=== PATIENT | female | born 1935 | race Caucasian/White ===

== ENCOUNTER 2017-01-02 18:23 | Inpatient (IN) | payer OTHER, MEDICARE ==
[~2017-01-02] VITALS: Ht 149.9 cm; Wt 85.3 kg
[~2017-01-02 18:23] MED LIST: ALL220TA PO; AMLO5TAB22 PO; ASPI81TA82 PO; HYDR-2768 PO; LEVO.025 PO; MAGN30TA PO; METO100T PO; MULT-65 PO; PRED20 PO; RANI150 PO; TERA10CA3 PO; VITA100018 PO; ZOCO40TA PO
[2017-01-02 18:28] VITALS: BP 150/83; PULSE 60; RESP 15; TEMP 98.2; O2SAT 96
--- NOTE | 2017-01-02 18:30 | PD ---
HPI Chief Complaint: Injury Time Seen by Provider: 18:29 Travel History International Travel<30 days: No Contact w/Intl Traveler<30days: No Traveled to known affect area: No History of Present Illness HPI 81-year-old female came to the emergency room with history of a fall and landing on her elbow on the floor. She was unable to straighten her elbow. She was in pain and called 911. Patient was given IV morphine on route and a sling was applied. Currently she is comfortable in terms of pain she said. No history of head injury. Patient did not get dizzy or lightheaded prior to the fall. PFSH Past Medical History Narrative Medical List of her past medical, surgical, social and family history was reviewed from the nursing note. Arthritis: Yes High Cholesterol: Yes Cerebrovascular Accident: Yes (CVA 1985) Coronary Artery Disease: Yes Hypertension: Yes Thyroid Disease: Yes Menopausal: No Past Surgical History Appendectomy: Yes Section: Yes (X4) Eye Surgery: Yes (bilateral cataract removal) Gynecologic Surgery: Yes (complete oophrectomy) Hysterectomy: Yes Social History Alcohol Use: Yes (OCCAS) Tobacco Use: No Substance Use: No Allergies-Medications (Allergen,Severity, Reaction): Coded Allergies: Demerol (Verified Allergy, Severe, Edema, 11/30/13) Percodan (Verified Allergy, Severe, Anaphylaxis, 11/30/13) Ramipril (Verified Allergy, Severe, edema, 11/30/13) Comments List of her allergies reviewed from the nursing note. Reported Meds & Prescriptions Reported Meds & Active Scripts Active Reported Aspirin 81 Mg Chew 81 Mg CHEW HS Zocor (Simvastatin) 80 Mg Tab 80 Mg PO HS Amlodipine (Amlodipine Besylate) 5 Mg Tab 5 Mg PO DAILY Vitamin D3 (Cholecalciferol) 1,000 Unit Chew 1,000 Units CHEW DAILY Vitamin B Complex (B-Complex Vitamins) 1 Tab 1 Tab PO DAILY Zinc (Zinc Gluconate) 10 Mg Laya 1 Tab PO DAILY Calcium (Calcium Carbonate) 1,250 Mg Tab 1,250 Mg PO DAILY 1,250 mg calcium carbonate (500 mg elemental calcium) Magnesium 200 Mg Tab 200 Mg PO DAILY Metoprolol Tartrate 100 Mg Tab 100 Mg PO DAILY Vitamin E 100 Unit Cap 100 Units PO DAILY Vitamin C (Ascorbic Acid) 500 Mg Cap 500 Mg PO DAILY Hydrochlorothiazide 25 Mg Tab 25 Mg PO DAILY Multivitamin Women (Multiple Vitamins W/ Minerals) 1 Tab Tab 1 Tab PO DAILY Narrative Medication List of her home medications reviewed from the nursing note. Review of Systems Except as stated in HPI: all other systems reviewed are Neg Physical Exam Narrative GENERAL: Awake, alert, elderly, mild distress SKIN: Focused skin assessment warm/dry. HEAD: Atraumatic. Normocephalic. EYES: Pupils equal and round. No scleral icterus. No injection or drainage. ENT: No nasal bleeding or discharge. Mucous membranes pink and moist. NECK: Trachea midline. No JVD. CARDIOVASCULAR: Regular rate and rhythm. No murmur appreciated. RESPIRATORY: No accessory muscle use. Clear to auscultation. Breath sounds equal bilaterally. GASTROINTESTINAL: Abdomen soft, non-tender, nondistended. Hepatic and splenic margins not palpable. MUSCULOSKELETAL: Significant deformity on the left elbow. No clubbing. No cyanosis. No edema. Intact distal neurovascular NEUROLOGICAL: Awake and alert. No obvious cranial nerve deficits. Motor grossly within normal limits. Normal speech. PSYCHIATRIC: Appropriate mood and affect; insight and judgment normal. Data Data Last Documented VS Vital Signs Date Time Temp Pulse Resp B/P Pulse Ox O2 Delivery O2 Flow Rate FiO2 01/02/17 20:20 98 3.00 01/02/17 20:20 Nasal Cannula 01/02/17 19:45 52 18 165/67 01/02/17 18:28 98.2 Orders Elbow, Limited (Ap&Lat) (01/02/17 ) Propofol 200 Mg/20 Ml Inj (Diprivan 200 (01/02/17 19:15) Sodium Chlor 0.9% 1000 Ml Inj (Ns 1000 M (01/02/17 19:15) Oxygen Administration (01/02/17 19:15) Iv Access Insert/Monitor (01/02/17 19:15) Ecg Monitoring (01/02/17 19:15) Oximetry (01/02/17 19:15) Ice/Cold Pack (01/02/17 19:15) Splint Or Brace Apply/Monitor (01/02/17 19:15) Sling Cradle Arm (01/02/17 ) Splint Or Brace Apply/Monitor (01/02/17 20:07) Elbow, Limited (Ap&Lat) (01/02/17 20:16) Complete Blood Count With Diff (01/02/17 20:42) Basic Metabolic Panel (Bmp) (01/02/17 20:42) Elbow, One View (01/02/17 ) Admit Order (Ed Use Only) (01/02/17 21:44) Morphine Inj (Morphine Inj) (01/02/17 21:45) Ondansetron Inj (Zofran Inj) (01/02/17 21:45) Sling Cradle Arm (01/02/17 ) Fiberglass Splint Elbow Adult (01/02/17 ) Labs Laboratory Tests Test 01/02/17 21:20 White Blood Count 12.8 TH/MM3 Red Blood Count 3.91 MIL/MM3 Hemoglobin 11.9 GM/DL Hematocrit 34.0 % Mean Corpuscular Volume 86.8 FL Mean Corpuscular Hemoglobin 30.5 PG Mean Corpuscular Hemoglobin 35.1 % Concent Red Cell Distribution Width 13.7 % Platelet Count 252 TH/MM3 Mean Platelet Volume 9.9 FL Neutrophils (%) (Auto) 86.4 % Lymphocytes (%) (Auto) 8.2 % Monocytes (%) (Auto) 5.0 % Eosinophils (%) (Auto) 0.1 % Basophils (%) (Auto) 0.3 % Neutrophils # (Auto) 11.1 TH/MM3 Lymphocytes # (Auto) 1.1 TH/MM3 Monocytes # (Auto) 0.6 TH/MM3 Eosinophils # (Auto) 0.0 TH/MM3 Basophils # (Auto) 0.0 TH/MM3 CBC Comment DIFF FINAL Differential Comment Sodium Level 142 MEQ/L Potassium Level 3.4 MEQ/L Chloride Level 105 MEQ/L Carbon Dioxide Level 29.6 MEQ/L Anion Gap 7 MEQ/L Blood Urea Nitrogen 24 MG/DL Creatinine 0.92 MG/DL Estimat Glomerular Filtration 58 ML/MIN Rate Random Glucose 148 MG/DL Calcium Level 8.5 MG/DL [facility] Medical Decision Making Medical Screen Exam Complete: Yes Emergency Medical Condition: Yes Medical Record Reviewed: Yes Differential Diagnosis Elbow dislocation, elbow fracture Narrative Course 6:36 PM based on the clinical scenario it looks to be an elbow dislocation. I' ve ordered an x-ray. Awaiting for the x-ray to be done and resulted. 7 PM case was signed over to the oncoming ER physician. Procedures EKG Prior to Arrival: No Scripts Sennosides-Docusate Sodium (Olena-Colace)8.6-50 Mg Tab1 Tab PO BID PRN ( Constipation) #60 TAB Ref 0 Prov:Meghana Yarbrough MD 01/04/17 Hydrocodone-Acetaminophen ([place])7.5-325 mg Tab1 Tab PO Q4H PRN (PAIN) #40 TAB Ref 0 Prov:Fransisco Bridges MD 01/03/17 Matthieu Hernandez MD January 02, 2017 18:30
[2017-01-02] MEDS ORDERED: METO100T PO (18:40)
[2017-01-02] MEDS ORDERED: ZINC10LO4 PO (18:40)
[2017-01-02] MEDS ORDERED: CALC500T17 PO (18:40)
[2017-01-02] MEDS ORDERED: HYDR25TA5 PO (18:40)
[2017-01-02] MEDS ORDERED: ZOCO80TA PO (18:40)
[2017-01-02] MEDS ORDERED: ASPI81CH CHEW (18:40)
[2017-01-02] MEDS ORDERED: CHOL100025 CHEW (18:40)
[2017-01-02] MEDS ORDERED: VITATAB11 PO (18:40)
[2017-01-02] MEDS ORDERED: ASCO500C PO (18:40)
[2017-01-02] MEDS ORDERED: MAGN200T PO (18:40)
[2017-01-02] MEDS ORDERED: MULT-120 PO (18:40)
[2017-01-02] MEDS ORDERED: AMLO5TAB2 PO (18:40)
[2017-01-02] MEDS ORDERED: VITA100C2 PO (18:40)
[2017-01-02] MEDS ORDERED: HYTRIN PO (18:40)
[2017-01-02] MEDS ORDERED: SODIUM CHLOR 0.9% 1000 ML INJ 1,000 ML IV ONE (19:15)
[2017-01-02] MEDS ORDERED: PROPOFOL 200 MG/20 ML AMP IV ONE (19:15)
--- NOTE | 2017-01-02 19:19 | PD ---
Physical Exam Narrative General: The patient is a well-developed well-nourished female in no acute distress. Head and Neck exam: Head is normocephalic atraumatic. Eyes: pupils are equal round and reactive to light. Nose: Midline septum with pink mucous membranes Mouth: Dentition unremarkable. Moist mucus membranes. Posterior oropharynx is not erythematous. No tonsillar hypertrophy. Uvula midline. Airway patent. Neck: No palpable lymphadenopathy. No nuchal rigidity. No thyromegaly. Cardiovascular: Regular rate and rhythm without murmurs, gallops, or rubs. Lungs: Clear to auscultation bilaterally. No wheezes, rhonchi, or rales. Abdomen: Soft, without tenderness to palpation in all 4 quadrants of the abdomen. No guarding, rebound, or rigidity. Extremities: No clubbing, cyanosis, or edema, except an area of interest, the left elbow. The patient has swelling along the left elbow joint with decreased range of motion with attempted extension 2+ pulses in all 4 extremities. Back: No spinous process tenderness to palpation. No costovertebral angle tenderness to palpation. Neurologic Exam: Grossly nonfocal. Skin Exam: No rash noted. Intact skin that is warm and dry. Data Data Last Documented VS Vital Signs Date Time Temp Pulse Resp B/P Pulse Ox O2 Delivery O2 Flow Rate FiO2 01/02/17 20:20 98 3.00 01/02/17 20:20 Nasal Cannula 01/02/17 19:45 52 18 165/67 01/02/17 18:28 98.2 Orders Elbow, Limited (Ap&Lat) (01/02/17 ) Propofol 200 Mg/20 Ml Inj (Diprivan 200 (01/02/17 19:15) Sodium Chlor 0.9% 1000 Ml Inj (Ns 1000 M (01/02/17 19:15) Oxygen Administration (01/02/17 19:15) Iv Access Insert/Monitor (01/02/17 19:15) Ecg Monitoring (01/02/17 19:15) Oximetry (01/02/17 19:15) Ice/Cold Pack (01/02/17 19:15) Splint Or Brace Apply/Monitor (01/02/17 19:15) Sling Cradle Arm (01/02/17 ) Splint Or Brace Apply/Monitor (01/02/17 20:07) Elbow, Limited (Ap&Lat) (01/02/17 20:16) Complete Blood Count With Diff (01/02/17 20:42) Basic Metabolic Panel (Bmp) (01/02/17 20:42) Elbow, One View (01/02/17 ) Admit Order (Ed Use Only) (01/02/17 21:44) Morphine Inj (Morphine Inj) (01/02/17 21:45) Ondansetron Inj (Zofran Inj) (01/02/17 21:45) Sling Cradle Arm (01/02/17 ) Fiberglass Splint Elbow Adult (01/02/17 ) Labs Laboratory Tests Test 01/02/17 21:20 White Blood Count 12.8 TH/MM3 Red Blood Count 3.91 MIL/MM3 Hemoglobin 11.9 GM/DL Hematocrit 34.0 % Mean Corpuscular Volume 86.8 FL Mean Corpuscular Hemoglobin 30.5 PG Mean Corpuscular Hemoglobin 35.1 % Concent Red Cell Distribution Width 13.7 % Platelet Count 252 TH/MM3 Mean Platelet Volume 9.9 FL Neutrophils (%) (Auto) 86.4 % Lymphocytes (%) (Auto) 8.2 % Monocytes (%) (Auto) 5.0 % Eosinophils (%) (Auto) 0.1 % Basophils (%) (Auto) 0.3 % Neutrophils # (Auto) 11.1 TH/MM3 Lymphocytes # (Auto) 1.1 TH/MM3 Monocytes # (Auto) 0.6 TH/MM3 Eosinophils # (Auto) 0.0 TH/MM3 Basophils # (Auto) 0.0 TH/MM3 CBC Comment DIFF FINAL Differential Comment Sodium Level 142 MEQ/L Potassium Level 3.4 MEQ/L Chloride Level 105 MEQ/L Carbon Dioxide Level 29.6 MEQ/L Anion Gap 7 MEQ/L Blood Urea Nitrogen 24 MG/DL Creatinine 0.92 MG/DL Estimat Glomerular Filtration 58 ML/MIN Rate Random Glucose 148 MG/DL Calcium Level 8.5 MG/DL [facility] Medical Record Reviewed: Yes Supervised Visit with JESUS: No Interpretation(s) Last Impressions Elbow X-Ray 01/02/172015 Signed Impressions: Service Date/Time: Monday, January 02, 2017 20:23 - CONCLUSION: 1. Reduction of previous elbow dislocation. Mayur Fuentes MD Elbow X-Ray 01/02/17 0000 Signed Impressions: Service Date/Time: Monday, January 02, 2017 20:35 - CONCLUSION: 1. Reduction of previous dislocation. There is some residual widening of the joint with joint effusion. Mayur Fuentes MD Elbow X-Ray 01/02/17 0000 Signed Impressions: Service Date/Time: Monday, January 02, 2017 18:48 - CONCLUSION: 1. Dislocated left elbow. Mayur Fuentes MD Narrative Course During the course of the patients emergency department visit, the patients history, examination, and differential diagnosis were reviewed with the patient. The patient had IV access obtained and blood work sent for analysis. The patient's case was checked out to me by Dr. Hernandez. Please see her complete history and physical. The patient reportedly fell striking her elbow was unable to straighten it. The patient on x-ray was noted to have a posterior dislocation of the elbow. The patient will be consented for closed reduction of her elbow dislocation under procedural sedation. The patient was provided morphine for pain, Zofran for nausea. The patients laboratory studies were reviewed and remarkable for a white count of 12.8, hemoglobin 11.9, platelets 252 with 86.4 neutrophils, lymphocytes 8.2 , BMP is remarkable for potassium of 3.4, BUN 24, glucose 148. Radiology studies were reviewed and remarkable for a left elbow dislocation anteriorly and laterally. The patient was provided procedural sedation and her elbow was relocated, however it filled grossly unstable while holding it in place for splinting. There was some concern that it was still subluxed. She continued to have significant pain after relocation. A call was placed out to the orthopedic physician on-call, Dr. Campos who works in the same group as Dr. Lopez, the orthopedic physician that the patient has seen in the past. He recommended that the patient be admitted to the hospitalist service for pain control and Dr. Loepz would see the patient in the morning. Postreduction films of the patient's although according to the reading radiologist revealed relocation of the elbow, however some residual widening of the joint with joint effusion noted. Procedures Procedure Narrative After the risks and benefits were discussed the following procedure was performed: MODERATE SEDATION: The patient was placed on a clinical research monitor and pulse oximetry. An ambu bag and suction was immediately available at bedside. The patient was monitored by the nurse. Oxygen saturation , heart rate and blood pressure were monitored. Procedural sedation was acheived using propofol. The patient was observed until awake and alert. Procedural Sedation time in attendance was 30 minutes. Closed reduction left elbow anterior and lateral dislocation: The patient was sedated and 3 attempts were made at relocation of the anterior and lateral dislocation. The dislocation palpated to be back in place, however it was grossly unstable, easily moving in and out of place even after relocation. X- rays were done during the procedure which revealed that it was back in alignment and no longer laterally displaced, however the anterior dislocation was still slightly subluxed. Multiple attempts were made at correction of this back into position, however as the joint is grossly unstable this is the best alignment I could be obtained. The patient was splinted. A call was placed out to the orthopedic physician for further guidance Physician Communication Physician Communication The patient's case was discussed with Dr. Campos as mentioned above in the ED course. The patient's case is discussed with who did agree to admit the patient for further evaluation and treatment at this time. Diagnosis Primary Impression: Anterior dislocation of left elbow Qualified Code: S53.115A - Anterior dislocation of left elbow, initial encounter Admitting Information Admitting Physician Requests: Observation Anuradha Pepper MD January 02, 2017 19:19
[2017-01-02 19:45] VITALS: BP 165/67; PULSE 52; RESP 18; O2SAT 98
--- NOTE | 2017-01-02 19:57 | RADRPT ---
EXAM DATE/TIME: 01/02/2017 18:48 [facility] COMPARISON: No previous studies available for comparison. INDICATIONS : Left elbow pain, fell Dislocation MEDICAL HISTORY : None. SURGICAL HISTORY : None. ENCOUNTER: Initial ACUITY: 1 day PAIN SCORE: 10/10 LOCATION: Left Elbow FINDINGS: There is a complete dislocation at the left elbow involving both the radius and ulna. No definite fra cture on these limited views. CONCLUSION: 1. Dislocated left elbow. Mayur Fuentes MD on January 02, 2017 at 19:54 Board Certified Radiologist. This report was verified electronically.
[2017-01-02 20:20] VITALS: O2SAT 98
[2017-01-02 21:31] LABS: AUTOMATED NEUTROPHIL # 11.1 TH/MM3 (1.8-7.7); BASOPHIL % 0.3 % (0.0-2.0); EOSINOPHIL % 0.1 % (0.0-4.0); HEMO FLAGS DIFF FINAL; LYMPH % 8.2 % (9.0-44.0); LYMPHOCYTE # 1.1 TH/MM3 (1.0-4.8); MEAN CELL VOLUME 86.8 FL (80.0-100.0); MEAN CORPUSCULAR HEMOGLOBIN 30.5 PG (27.0-34.0); MEAN CORPUSCULAR HGB CONC 35.1 % (32.0-36.0); NEUT % 86.4 % (16.0-70.0); PLATELET COUNT 252 TH/MM3 (150-450); RED BLOOD COUNT 3.91 MIL/MM3 (4.00-5.30); RED CELL DISTRIBUTION WIDTH 13.7 % (11.6-17.2); WHITE BLOOD COUNT 12.8 TH/MM3 (4.0-11.0)
[2017-01-02] MEDS ORDERED: ONDANSETRON HCL 4 MG/2 ML VIAL IV PUSH ONE (21:45)
[2017-01-02] MEDS ORDERED: MORPHINE SULFATE 4 MG/ML INJ IV PUSH ONE (21:45)
[2017-01-02 21:52] LABS: BICARBONATE 29.6 MEQ/L (21.0-32.0); POTASSIUM 3.4 MEQ/L (3.5-5.1)
[2017-01-02] MEDS ORDERED: SODIUM CHLOR 0.9% 1000 ML INJ 1,000 ML IV SCH (22:01)
[2017-01-02] MEDS ORDERED: ACETAMINOPHEN 325 MG TAB PO PRN (22:15)
[2017-01-02] MEDS ORDERED: SODIUM CHLORIDE 0.9% FLUSH 10 ML FLUSH IV FLUSH PRN (22:15)
[2017-01-02] MEDS ORDERED: NALOXONE HCL 0.4 MG/ML AMP IV PRN (22:15)
--- NOTE | 2017-01-02 22:19 | RADRPT ---
EXAM DATE/TIME: 01/02/2017 20:23 [facility] COMPARISON: No previous studies available for comparison. INDICATIONS : Post reduction, left elbow. MEDICAL HISTORY : None. SURGICAL HISTORY : None. ENCOUNTER: Subsequent ACUITY: 1 day PAIN SCORE: 10/10 LOCATION: Left elbow FINDINGS: Previous elbow dislocation has been reduced. No fracture is identified. CONCLUSION: 1. Reduction of previous elbow dislocation. Mayur Fuentes MD on January 02, 2017 at 22:17 Board Certified Radiologist. This report was verified electronically.
--- NOTE | 2017-01-02 22:20 | RADRPT ---
EXAM DATE/TIME: 01/02/2017 20:35 [facility] COMPARISON: No previous studies available for comparison. INDICATIONS : Post reduction, left elbow. MEDICAL HISTORY : None. SURGICAL HISTORY : None. ENCOUNTER: Subsequent ACUITY: 1 day PAIN SCORE: 10/10 LOCATION: Left elbow FINDINGS: Previous dislocation is reduced. There is some widening of the elbow joint. Positive joint effusion. CONCLUSION: 1. Reduction of previous dislocation. There is some residual widening of the joint with joint effusio n. Mayur Fuentes MD on January 02, 2017 at 22:18 Board Certified Radiologist. This report was verified electronically.
--- NOTE | 2017-01-02 22:31 | HHI.HP ---
HPI Service [facility] Primary Care Physician Ray Bentley MD Admission Diagnosis Intractable pain related to left elbow dislocation from fall Diagnoses: Chief Complaint: Pain left arm after fall Travel History International Travel<30 Days: No Contact w/Intl Traveler <30 Da: No Traveled to Known Affected Are: No History of Present Illness This is an 81-year-old female patient with past medical history which includes arthritis, hyperlipidemia, CVA 1985 with no residual effects, CAD status post NH , hypertension, hypothyroidism and vaginal carcinoma treated with 5-FU 1995. Patient reports she was in her normal state of health got up out of her recliner this evening and was standing with her hand on the recliner then the recliner fell backwards and patient also fell landing on her left arm. Patient denies chest pain, shortness of breath, dizziness, syncope, loss of consciousness or head trauma. Patient does report severe pain left arm after the fall. Pain is better after morphine. Pain is worse with movement. Patient denies numbness tingling paresthesia of left upper extremity. Left upper extremity is currently in a sling. Patient offers no other complaints at this time. Review of Systems Except as stated in HPI: all other systems reviewed are Neg Past Family Social History Past Medical History arthritis, hyperlipidemia, CVA 1985 with no residual effects, CAD status post NH , hypertension, hypothyroidism, vaginal carcinoma treated with 5-FU in 1995 Past Surgical History Appendectomy, 4, bilateral cataract surgery, total hysterectomy with complete nephrectomy, tonsillectomy as a child Reported Medications Aspirin 81 Mg Chew 81 Mg CHEW HS Zocor (Simvastatin) 80 Mg Tab 80 Mg PO HS Amlodipine (Amlodipine Besylate) 5 Mg Tab 5 Mg PO DAILY Vitamin D3 (Cholecalciferol) 1,000 Unit Chew 1,000 Units CHEW DAILY Vitamin B Complex (B-Complex Vitamins) 1 Tab 1 Tab PO DAILY Zinc (Zinc Gluconate) 10 Mg Laya 1 Tab PO DAILY Calcium (Calcium Carbonate) 1,250 Mg Tab 1,250 Mg PO DAILY 1,250 mg calcium carbonate (500 mg elemental calcium) Magnesium 200 Mg Tab 200 Mg PO DAILY [Hytrin] 2 Mg PO DAILY Metoprolol Tartrate 100 Mg Tab 100 Mg PO DAILY Vitamin E 100 Unit Cap 100 Units PO DAILY Vitamin C (Ascorbic Acid) 500 Mg Cap 500 Mg PO DAILY Hydrochlorothiazide 25 Mg Tab 25 Mg PO DAILY Multivitamin Women (Multiple Vitamins W/ Minerals) 1 Tab Tab 1 Tab PO DAILY Allergies: Coded Allergies: Demerol (Verified Allergy, Severe, Edema, 11/30/13) Percodan (Verified Allergy, Severe, Anaphylaxis, 11/30/13) Ramipril (Verified Allergy, Severe, edema, 11/30/13) Active Ordered Medications Current Medications Medications (Trade) Dose Ordered Sig/Michael Route Start Time Stop Time Status Last Admin (NS 1000 ml Inj) 1,000 ml @ 75 mls/hr [id number] IV 01/02/17 22:01 01/03/17 11:20 (NS Flush) 2 ml UNSCH PRN IV FLUSH 01/02/17 22:15 (NS Flush) 2 ml BID IV FLUSH 01/03/17 09:00 (Tylenol) 650 mg Q4H PRN PO 01/02/17 22:15 (Zofran Inj) 4 mg Q6H PRN IVP 01/02/17 22:15 (Colace) 100 mg Q12H PO 01/03/17 09:00 (Narcan Inj) 0.4 mg UNSCH PRN IV 01/02/17 22:15 (Morphine Inj) 2 mg Q4HR PRN IV PUSH 01/02/17 22:15 (Norvasc) 5 mg DAILY PO 01/03/17 09:00 (Hydrodiuril) 25 mg DAILY PO 01/03/17 09:00 (Lopressor) 100 mg DAILY PO 01/03/17 09:00 (Pravachol) 80 mg HS PO 01/03/17 21:00 Family History Mother at77 of CHF Father at age 84 secondary to cancer Social History Patient lives at home alone and is independent with ADLs Reports EtOH use socially- not on a daily basis Quit tobacco use in 1985 Denies illicit drug use Physical Exam Vital Signs Vital Signs Date Time Temp Pulse Resp B/P Pulse Ox O2 Delivery O2 Flow Rate FiO2 01/02/17 20:20 98 3.00 01/02/17 20:20 98 01/02/17 20:20 98 Nasal Cannula 3.00 01/02/17 19:45 95 Nasal Cannula 01/02/17 19:45 98 Nasal Cannula 2 01/02/17 19:45 52 18 165/67 98 Nasal Cannula 2 01/02/17 18:32 56 17 01/02/17 18:28 98.2 60 15 150/83 96 Physical Exam GENERAL: This is a well-nourished, well-developed patient, in no apparent distress. Left upper extremity in sling SKIN: No rashes, ecchymoses or lesions. Cool and dry. HEAD: Atraumatic. Normocephalic. No temporal or scalp tenderness. EYES: Extraocular motions intact. No scleral icterus. No injection or drainage. CARDIOVASCULAR: Regular rate and rhythm without murmurs, gallops, or rubs. RESPIRATORY: Clear to auscultation. Breath sounds equal bilaterally. No wheezes , rales, or rhonchi. GASTROINTESTINAL: Abdomen soft, non-tender, nondistended. No hepato-splenomegaly , or palpable masses. No guarding. MUSCULOSKELETAL: Extremities without clubbing, cyanosis, or edema. No joint tenderness, effusion, or edema noted. No calf tenderness. Negative Homans sign bilaterally. NEUROLOGICAL: Awake and alert. No focal deficits appreciated. Motor and sensory grossly within normal limits. 4-5 out of 5 muscle strength in all muscle groups, with the exception of left upper extremity currently in a sling with limited range of motion. Normal speech. Laboratory Laboratory Tests Test 01/02/17 21:20 White Blood Count 12.8 Red Blood Count 3.91 Hemoglobin 11.9 Hematocrit 34.0 Mean Corpuscular Volume 86.8 Mean Corpuscular Hemoglobin 30.5 Mean Corpuscular Hemoglobin 35.1 Concent Red Cell Distribution Width 13.7 Platelet Count 252 Mean Platelet Volume 9.9 Neutrophils (%) (Auto) 86.4 Lymphocytes (%) (Auto) 8.2 Monocytes (%) (Auto) 5.0 Eosinophils (%) (Auto) 0.1 Basophils (%) (Auto) 0.3 Neutrophils # (Auto) 11.1 Lymphocytes # (Auto) 1.1 Monocytes # (Auto) 0.6 Eosinophils # (Auto) 0.0 Basophils # (Auto) 0.0 CBC Comment DIFF FINAL Differential Comment Sodium Level 142 Potassium Level 3.4 Chloride Level 105 Carbon Dioxide Level 29.6 Anion Gap 7 Blood Urea Nitrogen 24 Creatinine 0.92 Estimat Glomerular Filtration 58 Rate Random Glucose 148 Calcium Level 8.5 Result Diagram: 01/02/17211901/02/172119 Imaging Last Impressions Elbow X-Ray 01/02/172015 Signed Impressions: Service Date/Time: Monday, January 02, 2017 20:23 - CONCLUSION: 1. Reduction of previous elbow dislocation. Mayur Fuentes MD Last Impressions Elbow X-Ray 01/02/17 0000 Signed Impressions: Service Date/Time: Monday, January 02, 2017 18:48 - CONCLUSION: 1. Dislocated left elbow. Mayur Fuentes MD Assessment and Plan Problem List: (1) Anterior dislocation of left elbow ICD Code: S53.115A Status: Acute Assessment and Plan This is an 81-year-old female patient with past medical history which includes arthritis, hyperlipidemia, CVA 1985 with no residual effects, CAD status post NH , hypertension, hypothyroidism. Patient reports she was in her normal state of health got up out of her recliner this evening and was standing with her hand on the recliner then the recliner fell backwards and patient also fell landing on her left arm. Dislocation left elbow after a fall ER physician reduced left elbow in ER Repeat x-ray reveals reduced left elbow Left upper extremity currently in sling Consult to orthopedic surgery Morphine IV as needed for pain Nothing by mouth after midnight Other chronic stable medical conditions include hyperlipidemia, hypertension, CAD- continue home medications as indicated SCDs for DVT prophylaxis Discussed with here provider, nursing and patient Also discussed with Dr. Fleming Physician Certification 2 Midnight Certification Type: Admission for Inpatient Services Order for Inpatient Services The services are ordered in accordance with Medicare regulations or non- Medicare payer requirements, as applicable. In the case of services not specified as inpatient-only, they are appropriately provided as inpatient services in accordance with the 2-midnight benchmark. Estimated LOS (days): 2 days is the estimated time the patient will need to remain in the hospital, assuming treatment plan goals are met and no additional complications. Post-Hospital Plan: Home Problem Qualifiers (1) Anterior dislocation of left elbow: Qualified Code: S53.115A - Anterior dislocation of left elbow, initial encounter Ilda Ureña January 02, 2017 22:31
[2017-01-03] VITALS (9 sets, daily range): BP systolic 142–188; BP diastolic 55–84; PULSE 51–60; RESP 16–19; TEMP 96.1–98.1; O2SAT 93–98
[2017-01-03] MEDS: ONDANSETRON HCL 4 MG/2 ML VIAL IVP PRN (05:35)
--- NOTE | 2017-01-03 07:03 | PD.ORT.PN ---
Subjective Subjective Remarks s/p elbow dislocation attempted reduction in ER unsuccessful Objective Vitals Vital Signs Date Time Temp Pulse Resp B/P Pulse Ox O2 Delivery O2 Flow Rate FiO2 01/03/17 05:47 154/64 01/03/17 04:00 96.9 51 17 166/72 96 01/03/17 04:00 Room Air 01/03/17 00:03 96.1 55 16 175/71 95 01/03/17 00:03 Room Air 01/02/17 20:20 98 3.00 01/02/17 20:20 98 01/02/17 20:20 98 Nasal Cannula 3.00 01/02/17 19:45 95 Nasal Cannula 01/02/17 19:45 98 Nasal Cannula 2 01/02/17 19:45 52 18 165/67 98 Nasal Cannula 2 01/02/17 18:32 56 17 01/02/17 18:28 98.2 60 15 150/83 96 I/O 01/02/17 01/02/17 01/02/17 01/03/17 01/03/17 01/03/17 07:00 15:00 23:00 07:00 15:00 23:00 Intake Total 324 ml Balance 324 ml Intake Oral 0 ml IV Total 324 ml # Voids 1 Result Diagram: 01/02/17211901/02/172119 Imaging Last 24 hours Impressions Elbow X-Ray 01/02/172015 Signed Impressions: Service Date/Time: Monday, January 02, 2017 20:23 - CONCLUSION: 1. Reduction of previous elbow dislocation. Mayur Fuentes MD Objective Remarks LUE: +splint. NVI Assessment & Plan Assessment and Plan 1) Left elbow dislocation -clear liquids until 11AM. NPO after 11AM -sign consents -surgery today [place] Man January 03, 2017 07:03
[2017-01-03] MEDS: DOCUSATE SODIUM 100 MG CAP PO SCH ×2 (07:48→20:03)
[2017-01-03] MEDS: METOPROLOL TARTRATE 100 MG TAB PO SCH (07:48)
[2017-01-03 07:49] LABS: AUTOMATED NEUTROPHIL # 7.2 TH/MM3 (1.8-7.7); BASOPHIL # 0.1 TH/MM3 (0-0.2); BASOPHIL % 0.8 % (0.0-2.0); EOSINOPHIL # 0.1 TH/MM3 (0-0.4); EOSINOPHIL % 1.2 % (0.0-4.0); HEMO FLAGS DIFF FINAL; LYMPH % 16.8 % (9.0-44.0); LYMPHOCYTE # 1.7 TH/MM3 (1.0-4.8); MEAN CELL VOLUME 87.3 FL (80.0-100.0); MEAN CORPUSCULAR HEMOGLOBIN 30.1 PG (27.0-34.0); MEAN CORPUSCULAR HGB CONC 34.5 % (32.0-36.0); MONO % 8.5 % (0.0-8.0); NEUT % 72.7 % (16.0-70.0); PLATELET COUNT 249 TH/MM3 (150-450); RED BLOOD COUNT 4.24 MIL/MM3 (4.00-5.30); RED CELL DISTRIBUTION WIDTH 13.9 % (11.6-17.2); WHITE BLOOD COUNT 9.9 TH/MM3 (4.0-11.0)
[2017-01-03] MEDS: SODIUM CHLORIDE 0.9% FLUSH 10 ML FLUSH IV FLUSH SCH ×2 (07:49→20:03)
[2017-01-03] MEDS: HYDROCHLOROTHIAZIDE 25 MG TAB PO SCH (07:49)
[2017-01-03] MEDS: amLODIPine BESYLATE 5 MG TAB PO SCH (07:49)
[2017-01-03] MEDS: MORPHINE SULFATE 4 MG/ML INJ IV PUSH PRN (07:52)
--- NOTE | 2017-01-03 08:04 | MB ---
cc: LANEREINA DATE OF CONSULTATION: 01/03/2017 REASON FOR CONSULTATION Left elbow dislocation. HISTORY OF PRESENT ILLNESS Staci is an 81-year-old female who had a fall at home. She got out of a recliner when she fell. She landed on her left arm. She had immediate left elbow pain. She presented to the emergency room where x-rays revealed a left elbow dislocation. She underwent attempt at closed reduction. Post-reduction x-rays revealed improvement of the alignment, however, the elbow was not completely reduced. She is currently awake and alert in the orthopedic floor. Currently her only complaint is her left elbow. Pain is worse with movement and is improved with rest. She denies any dizziness, syncope or loss of consciousness. PAST MEDICAL HISTORY ILLNESSES 1. Arthritis. 2. High cholesterol. 3. History of CVA. 4. Coronary artery disease. 5. Hypertension. 6. Hypothyroidism. 7. Vaginal carcinoma. SURGERIES 1. Appendectomy. 2. . 3. Cataract surgery. 4. Total hysterectomy. 5. Nephrectomy. 6. Tonsillectomy. MEDICATIONS 1. Aspirin. 2. Zocor. 3. Amlodipine. 4. Vitamin-D. 5. Vitamin-B. 6. Zinc. 7. Calcium. 8. Magnesium. 9. Metoprolol. 10.Hydrochlorothiazide. ALLERGIES 1. DEMEROL. 2. PERCODAN. 3. RAMIPRIL. FAMILY HISTORY Positive for CHF in her mother and cancer in her father. SOCIAL HISTORY The patient lives at home alone. She denies tobacco or drug use. She drinks alcohol socially. REVIEW OF SYSTEMS The patient denies headache, visual changes, neck pain, chest pain, shortness of breath, abdominal pain, nausea, vomiting or recent weight loss. She complains of left elbow pain. PHYSICAL EXAMINATION GENERAL: The patient is a well-developed, well-nourished 81-year-old female who is awake and alert. She is alert and oriented x3. VITAL SIGNS: Temperature 96.9, pulse 51, respirations 17, blood pressure 166/72. O2 sat is 96% on 3 liters nasal cannula. HEAD: The patient is normocephalic. Pupils are equal. NECK: Soft, nontender. Trachea is midline. ABDOMEN: Soft, nontender, nondistended. EXTREMITIES: Examination of left arm reveals no tenderness around her shoulder, wrist or fingers. She has intact sensation in all fingers. She has good capillary refill in all fingers. She has pain with any shoulder motion. Radial pulse is palpable. Examination of right arm reveals no pain with shoulder, elbow or wrist motion. She has intact sensation in all fingers. She has good capillary refill in all fingers. Sensation is intact. Examination of bilateral lower extremities reveals no significant pain with hip, knee or ankle motion. Skin is intact in both feet. Dorsalis pedis pulses are palpable. X-RAYS X-rays of left elbow were reviewed. X-rays reveal initial complete elbow dislocation. Post-reduction x-rays reveal some mild subluxation of the elbow joint. IMPRESSION Left elbow dislocation. PLAN The treatment options were discussed with the patient. At this point I would recommend attempted closed reduction of the left elbow. If fracture is unstable the patient may need definitive ligamentous reconstruction or possible external fixation placement. Risks of surgery include bleeding, infection, injuries to arteries, nerves and blood vessels, need for further surgery, need for ligament reconstruction as well as medical complications associated with general anesthesia. All questions were answered. I will plan on surgery today. A mid-level provider in my office, nurse practitioner or PA, may see this patient on a follow-up basis and continue to implement the objective of this plan including: Starting or adjusting medications, injections of muscle, tendon, bursa or joints, cast application, orthotic or brace application, physical therapy, further radiographic studies including x-ray, MRI, CT, ultrasounds or bone scan, vascular studies, neurologic studies, or other specialist consultations, and proceeding with surgical management as appropriate. MD JODY Welsh/CAROL /7:26 AM /7:56 AM
[2017-01-03 08:17] LABS: BICARBONATE 28.9 MEQ/L (21.0-32.0); POTASSIUM 3.6 MEQ/L (3.5-5.1)
[2017-01-03] MEDS ORDERED: TERA2CAP3 PO (11:26)
--- NOTE | 2017-01-03 11:47 | HHI.PR ---
Subjective Remarks Patient seen for follow up anterior dislocation of right elbow. 01/03/17-patient seen this AM. No acute events overnight. SBP is up to the 180s this morning (now in the 160s). Other vitals WNL. No c/o CP, AGUILAR, or vision change at this time. Feels pain well controlled with morphine. Objective Vitals Vital Signs Date Time Temp Pulse Resp B/P Pulse Ox O2 Delivery O2 Flow Rate FiO2 01/03/17 08:00 97.3 60 19 186/84 94 01/03/17 05:47 154/64 01/03/17 04:00 96.9 51 17 166/72 96 01/03/17 04:00 Room Air 01/03/17 00:03 96.1 55 16 175/71 95 01/03/17 00:03 Room Air 01/02/17 20:20 98 3.00 01/02/17 20:20 98 01/02/17 20:20 98 Nasal Cannula 3.00 01/02/17 19:45 95 Nasal Cannula 01/02/17 19:45 98 Nasal Cannula 2 01/02/17 19:45 52 18 165/67 98 Nasal Cannula 2 01/02/17 18:32 56 17 01/02/17 18:28 98.2 60 15 150/83 96 I/O 01/02/17 01/02/17 01/02/17 01/03/17 01/03/17 01/03/17 07:00 15:00 23:00 07:00 15:00 23:00 Intake Total 324 ml Balance 324 ml Intake Oral 0 ml IV Total 324 ml # Voids 1 Result Diagram: 01/03/1728 01/03/17 0728 Objective Remarks GENERAL: This is a well-nourished, well-developed patient, in no apparent distress. SKIN: No rashes, ecchymoses or lesions. Cool and dry. CARDIOVASCULAR: Regular rate and rhythm without murmurs, gallops, or rubs. RESPIRATORY: Clear to auscultation. Breath sounds equal bilaterally. No wheezes , rales, or rhonchi. GASTROINTESTINAL: Abdomen soft, non-tender, nondistended. No hepato-splenomegaly , or palpable masses. No guarding. MUSCULOSKELETAL: Extremities without clubbing, cyanosis, or edema. No joint tenderness, effusion, or edema noted. No calf tenderness. Negative Homans sign bilaterally. Left upper extremity in sling. Moves fingers and sensation intact to touch in LUE. NEUROLOGICAL: Awake and alert. A/P Problem List: (1) Anterior dislocation of left elbow ICD Code: S53.115A Status: Acute Assessment and Plan This is an 81-year-old female patient with past medical history which includes arthritis, hyperlipidemia, CVA 1985 with no residual effects, CAD status post [place] , hypertension, hypothyroidism. Patient reports she was in her normal state of health got up out of her recliner this evening and was standing with her hand on the recliner then the recliner fell backwards and patient also fell landing on her left arm. Dislocation left elbow after a fall -ER physician reduced left elbow in ER -Repeat x-ray reveals reduced left elbow -Left upper extremity currently in sling -Orthopedic surgery consulted. Plan for closed reduction today. -Morphine IV as needed for pain -Clear liquid diet Other chronic stable medical conditions: hyperlipidemia, hypertension, CAD -continue home medications as indicated -will add PRN clonidine for BP elevation SCDs for DVT prophylaxis Problem Qualifiers (1) Anterior dislocation of left elbow: Qualified Code: S53.115A - Anterior dislocation of left elbow, initial encounter Sanford Valderrama MD R3 January 03, 2017 11:47 encounter Sanford Valderrama MD R3 January 03, 2017 11:47
[2017-01-03] MEDS ORDERED: PROPOFOL 200 MG/20 ML AMP IV ONE (12:00)
[2017-01-03] MEDS: cloNIDine HCL 0.1 MG TAB PO PRN (16:33)
[2017-01-03] MEDS ORDERED: HYDR-3288 PO (18:13)
[2017-01-03] MEDS ORDERED: MORPHINE SULFATE 4 MG/ML INJ IV PUSH PRN (18:15)
[2017-01-03] MEDS ORDERED: ACETAMINOPHEN/HYDROcodone 325 MG/7.5 MG TAB PO PRN (18:15)
--- NOTE | 2017-01-03 18:15 | PD.OP ---
cc: Fransisco Jimenez MD Operative Report Date of Surgery: January 03, 2017 Preoperative Diagnosis: Left elbow dislocation Postoperative Diagnosis: Procedure: Closed reduction under anesthesia of left elbow dislocation Surgeon: Fransisco Jimenez Magnetic Observer(s): Haroldo Steel PA-C Operation and Findings: Staci is an 81-year-old female who fell yesterday resulting a left elbow dislocation. She underwent attempted closed reduction emergency department. Postreduction x-rays revealed that the elbow was not completely reduced. Informed consent was obtained and operative site was marked. She is brought to operating room. She was given IV sedation. Timeout procedure was performed. Procedure began with manipulation of the elbow. Gentle traction was applied. The elbow was placed through gentle range of motion. Clinically the elbow reduced well. Fluoroscopy was used to confirm appropriate alignment of the elbow. The elbow was stable through the mid arc of motion from 30 up to 130. There was some joint subluxation with full extension. Patient placed into a well molded well-padded clamshell splint with her elbow at 90. She was placed into a sling. She was transferred to recovery in stable condition. Fransisco Jimenez MD January 03, 2017 18:15
--- NOTE | 2017-01-03 18:49 | RADRPT ---
EXAM DATE/TIME: 01/03/2017 18:02 [facility] COMPARISON: ELBOW LEFT LIMITED (AP & LAT), January 02, 2017, 20:23. INDICATIONS : Closed reduction left elbow in the operating room. MEDICAL HISTORY : None. SURGICAL HISTORY : None. ENCOUNTER: Subsequent ACUITY: 2 days PAIN SCORE: Non-responsive. LOCATION: Left upper extremity FINDINGS: AP and lateral cone-down views of the left elbow were obtained and demonstrate widening of the radial capitellar joint. The alignment is otherwise unremarkable. No fractures identified. CONCLUSION: The radiocapitellar joint appears mildly widened. The alignment is otherwise unremarkable. Christopher Tejada MD on January 03, 2017 at 18:46 Board Certified Radiologist. This report was verified electronically.
[2017-01-03] MEDS ORDERED: DO NOT ADM ANY ANTICOAGULANT DRUGS PRN (19:15)
[2017-01-03] MEDS ORDERED: PRAVASTATIN SOD 80 MG TAB PO SCH (21:00)
[2017-01-04] MEDS: MORPHINE SULFATE 4 MG/ML INJ IV PUSH PRN (00:12)
[2017-01-04] MEDS: ONDANSETRON HCL 4 MG/2 ML VIAL IVP PRN ×2 (00:16→13:31)
[2017-01-04 04:30] VITALS: BP 147/55; PULSE 52; RESP 18; TEMP 97.8; O2SAT 93
[2017-01-04 06:15] LABS: HEMATOCRIT 31.1 % (35.0-46.0); MEAN CELL VOLUME 87.2 FL (80.0-100.0); MEAN CORPUSCULAR HEMOGLOBIN 30.6 PG (27.0-34.0); MEAN CORPUSCULAR HGB CONC 35.1 % (32.0-36.0); PLATELET COUNT 211 TH/MM3 (150-450); RED BLOOD COUNT 3.57 MIL/MM3 (4.00-5.30); RED CELL DISTRIBUTION WIDTH 13.7 % (11.6-17.2); REVIEW FLAG FINAL
[2017-01-04 06:43] LABS: BICARBONATE 32.2 MEQ/L (21.0-32.0); POTASSIUM 3.3 MEQ/L (3.5-5.1)
[2017-01-04 08:00] VITALS: BP 174/72; PULSE 55; RESP 20; TEMP 97.4; O2SAT 94
[2017-01-04] MEDS: SODIUM CHLORIDE 0.9% FLUSH 10 ML FLUSH IV FLUSH SCH (10:00)
[2017-01-04] MEDS: METOPROLOL TARTRATE 100 MG TAB PO SCH (10:01)
[2017-01-04] MEDS: DOCUSATE SODIUM 100 MG CAP PO SCH (10:01)
[2017-01-04] MEDS: amLODIPine BESYLATE 5 MG TAB PO SCH (10:01)
[2017-01-04] MEDS: HYDROCHLOROTHIAZIDE 25 MG TAB PO SCH (10:02)
[2017-01-04] MEDS: cloNIDine HCL 0.1 MG TAB PO PRN (10:02)
--- NOTE | 2017-01-04 10:51 | PD.ORT.PN ---
Subjective Subjective Remarks Resting comfortably no new complaints Objective Vitals Vital Signs Date Time Temp Pulse Resp B/P Pulse Ox O2 Delivery O2 Flow Rate FiO2 01/04/17 08:00 97.4 55 20 174/72 94 01/04/17 04:30 97.8 52 18 147/55 93 01/03/17 23:12 96.8 55 19 169/61 98 01/03/17 21:28 21 01/03/17 20:00 Room Air 01/03/17 19:38 96.7 54 18 142/55 95 01/03/17 19:00 97.1 77 12 153/69 95 Room Air 01/03/17 18:45 76 12 143/64 100 Nasal Cannula 2 01/03/17 18:30 80 12 157/66 99 Nasal Cannula 2 01/03/17 18:24 96.9 75 12 159/67 100 Nasal Cannula 3 01/03/17 16:30 98.1 58 18 188/78 93 01/03/17 11:58 98.0 58 17 168/67 95 I/O 01/03/17 01/03/17 01/03/17 01/04/17 01/04/17 01/04/17 07:00 15:00 23:00 07:00 15:00 23:00 Intake Total 324 ml 600 ml 1160 ml 240 ml Balance 324 ml 600 ml 1160 ml 240 ml Intake Oral 0 ml 600 ml 360 ml 240 ml IV Total 324 ml Other 800 ml # Voids 1 3 1 1 # Bowel Movements 0 0 Result Diagram: 01/04/17 0539 01/04/17 0539 Imaging Last 24 hours Impressions Elbow X-Ray 01/02/172015 Signed Impressions: Service Date/Time: Monday, January 02, 2017 20:23 - CONCLUSION: 1. Reduction of previous elbow dislocation. Mayur Fuentes MD Objective Remarks Left upper extremity: Long arm splint intact. Distally intact sensation with full extension and flexion of fingers. Good capillary refills Assessment & Plan Assessment and Plan 1) Left elbow dislocation close reduction POD 1 Maintain splint and sling when ambulating Orthopedically cleared for discharge Nonweightbearing left upper extremity Follow-up with Dr. Jimenez or PA in 10 days Christopher Steel Jr. January 04, 2017 10:51
[2017-01-04] MEDS ORDERED: DOCUSATE SODIUM 50 MG/SENNA 8.6 MG TAB PO PRN (11:30)
[2017-01-04] MEDS ORDERED: MAGNESIUM HYDROXIDE SUSP 30 ML CUP PO PRN (11:30)
[2017-01-04] MEDS ORDERED: POLYETHYLENE GLYCOL 17 GM PKG PO SCH (11:30)
[2017-01-04] MEDS ORDERED: POTASSIUM CHLORIDE 20 MEQ CONTROLLED RELEASE TAB PO ONE (11:30)
[2017-01-04 12:00] VITALS: BP 98/71; PULSE 60; RESP 18; TEMP 98; O2SAT 95
--- NOTE | 2017-01-04 12:10 | HHI.PR ---
Subjective Remarks pain better controlled after taking IV morphine. no nausea or vomiting, no CP/ SOB tolerating a diet. discussed w RN, pt's pain was high enough requiring IV pain meds, she will transition her to po pain meds later today. Objective Vitals Vital Signs Date Time Temp Pulse Resp B/P Pulse Ox O2 Delivery O2 Flow Rate FiO2 01/04/17 08:00 97.4 55 20 174/72 94 01/04/17 04:30 97.8 52 18 147/55 93 01/03/17 23:12 96.8 55 19 169/61 98 01/03/17 21:28 21 01/03/17 20:00 Room Air 01/03/17 19:38 96.7 54 18 142/55 95 01/03/17 19:00 97.1 77 12 153/69 95 Room Air 01/03/17 18:45 76 12 143/64 100 Nasal Cannula 2 01/03/17 18:30 80 12 157/66 99 Nasal Cannula 2 01/03/17 18:24 96.9 75 12 159/67 100 Nasal Cannula 3 01/03/17 16:30 98.1 58 18 188/78 93 I/O 01/03/17 01/03/17 01/03/17 01/04/17 01/04/17 01/04/17 07:00 15:00 23:00 07:00 15:00 23:00 Intake Total 324 ml 600 ml 1160 ml 240 ml Balance 324 ml 600 ml 1160 ml 240 ml Intake Oral 0 ml 600 ml 360 ml 240 ml IV Total 324 ml Other 800 ml # Voids 1 3 1 1 # Bowel Movements 0 0 Result Diagram: 01/04/17 0539 01/04/17 0539 Imaging Last Impressions Elbow X-Ray 01/03/17 0000 Signed Impressions: Service Date/Time: Tuesday, January 03, 2017 18:02 - CONCLUSION: The radiocapitellar joint appears mildly widened. The alignment is otherwise unremarkable. Christopher Tejada MD Objective Remarks GENERAL: This is a well-nourished, well-developed patient, in no apparent distress. CARDIOVASCULAR: Regular rate and rhythm without murmurs RESPIRATORY: Clear to auscultation. Breath sounds equal bilaterally. No wheezes GASTROINTESTINAL: Abdomen soft, non-tender, nondistended. No guarding. MUSCULOSKELETAL: Extremities without edema. Left upper extremity in sling w dressing in place. Moves fingers and sensation intact to touch in LUE. NEUROLOGICAL: Awake and alert. A/P Problem List: (1) Anterior dislocation of left elbow ICD Code: S53.115A Status: Acute Assessment and Plan This is an 81-year-old female patient with past medical history which includes arthritis, hyperlipidemia, CVA 1985 with no residual effects, CAD status post [place] , hypertension, hypothyroidism. Patient reports she was in her normal state of health got up out of her recliner this evening and was standing with her hand on the recliner then the recliner fell backwards and patient also fell landing on her left arm. Dislocation left elbow after a fall -s/p reduction of left elbow in ER -Repeat x-ray revealed reduced left elbow -Orthopedic surgery evaluated the pt and she is s/p Left elbow dislocation close reduction POD 1 Recs are to Maintain splint and sling when ambulating. She is Orthopedically cleared for discharge Nonweightbearing left upper extremity -Morphine IV as needed for pain but transition to po prior to discharge. -diabetic diet added miralax, zachariah-colace and milk of mag as needed for bowel regimen as pt hasn't had a BM per RN. Other chronic stable medical conditions: hyperlipidemia, hypertension, CAD -continue home medications as indicated -PRN clonidine for BP elevation. BP's noted to be elevated today most likely from pain. Monitor. Discharge Planning Monitor BP's pt has been cleared from an ortho standpoint however she is still requiring IV morphine. I have encouraged her to take po pain meds and only take IV morphine for breakthrough pain. anticipate discharge later today if pain controlled w po meds or tomorrow morning. Problem Qualifiers (1) Anterior dislocation of left elbow: Qualified Code: S53.115A - Anterior dislocation of left elbow, initial encounter Meghana Yarbrough MD January 04, 2017 12:10
[2017-01-04 13:53] VITALS: O2SAT 95
[2017-01-04] MEDS ORDERED: PERI8.6T PO (15:00)
[2017-01-04 16:00] VITALS: BP 118/52; PULSE 51; RESP 18; TEMP 97.4; O2SAT 92
== END 2017-01-04 16:53 | disposition home or self-care (01) | DRG 563 ==
LOC: NEPC 18:23 → NEDA 21:46 → N06B 01-03 00:09
PROVIDERS: ADMIT Hospitalist; ATTEND Hospitalist
PROC: 0RSMXZZ Reposition Left Elbow Joint, External Approach (ICD-10-PCS; 2017-01-02)
PROC: 0RSMXZZ Reposition Left Elbow Joint, External Approach (ICD-10-PCS; principal; 2017-01-03 17:43)
DX: S53.115A Anterior dislocation of left ulnohumeral joint, initial encounter (principal); I10 Essential (primary) hypertension; S53.145A Lateral dislocation of left ulnohumeral joint, initial encounter; E78.5 Hyperlipidemia, unspecified; M19.90 Unspecified osteoarthritis, unspecified site; I25.10 Atherosclerotic heart disease of native coronary artery without angina pectoris; E03.9 Hypothyroidism, unspecified; E78.00 Pure hypercholesterolemia, unspecified; R11.0 Nausea; I25.2 Old myocardial infarction; Z85.89 Personal history of malignant neoplasm of other organs and systems; Z87.891 Personal history of nicotine dependence; Z86.73 Personal history of transient ischemic attack (TIA), and cerebral infarction without residual deficits; W18.39XA Other fall on same level, initial encounter; Y92.009 Unspecified place in unspecified non-institutional (private) residence as the place of occurrence of the external cause
CPT/HCPCS: 24600; 73070; 76000; 80048; 85025; 85027; 96361; 96374; J2270; J2405; J7030